=== PATIENT | female | born 1970 | race African-American/Black ===

== ENCOUNTER 2018-12-23 15:16 | Emergency (ER) | payer OTHER ==
[~2018-12-23] VITALS: Ht 154.9 cm; Wt 70.3 kg
[~2018-12-23 15:16] MED LIST: ALBUPOW26; FLUT250M2; OMEP20CA74 PO
[2018-12-23 15:37] LABS: Urine WBC None Seen /hpf (0 - 5)
[2018-12-23 15:47] LABS: Urine Bacteria NONE SEEN /hpf (None Seen); Urine Blood TRACE /uL (Negative); Urine Mucus FEW (None Seen); Urine Specific Gravity 1.027 (1.001-1.035)
[2018-12-23 16:40] LABS: Alanine Aminotransferase 29 U/L (13-56); Albumin 3.7 g/dL (3.4-5.0); Anion Gap 7 (5-15); Aspartate Aminotransferase 13 U/L (15-37); BUN/Creatinine Ratio 14.9; Blood Urea Nitrogen 14 mg/dL (7-18); Calcium 8.4 mg/dL (8.5-10.1); Carbon Dioxide 25 mmol/L (21-32); Chloride 107 mmol/L (98-107); GFR African American 82 mL/min; GFR Non-African American 68 mL/min; Glucose 81 mg/dL (74-106); Potassium 4.1 mmol/L (3.5-5.1); Sodium 139 mmol/L (136-145)
[2018-12-23 16:41] LABS: Eosinophils # (auto) 0.1 uL; Hemoglobin 11.8 g/dL (12.2-16.2); Monocytes # (auto) 0.4 uL
[2018-12-23 16:42] LABS: Basophils # (auto) 0.1 uL; Eosinophils % (auto) 1.3 % (0.0-7.0); Hematocrit 38.2 % (36.0-46.0); Lymphocytes # (auto) 1.8 uL; Lymphocytes % (auto) 32.1 % (10.0-50.0); Mean Corpuscular Volume 67.8 fL (80.0-100.0); Monocytes % (auto) 7.4 % (0.0-12.0); Neutrophils # (auto) 3.2 uL; Neutrophils % (auto) 58.2 % (37.0-80.0); Nucleated Red Blood Cells % 0.2 %; Platelet Count (auto) 277 10^3/uL (140-450); Red Blood Cells 5.63 10^6/uL (4.0-5.20); Red Cell Distribution Width 16.5 % (11.8-14.3); White Blood Cell 5.5 10^3/uL (4.4-10.8)
[2018-12-23 16:45] LABS: Alkaline Phosphatase 57 U/L (45-117); Bilirubin, Total 0.3 mg/dL (0.2-1.0); Total Protein 7.5 g/dL (6.4-8.2)
[2018-12-23] MEDS ORDERED: ASPirin 81 mg TAB PO ONE (17:15)
[2018-12-23 18:10] VITALS: BP 134/62
== END 2018-12-23 18:23 | disposition home or self-care (01) ==
LOC: ER 15:16
DX: R07.89 Other chest pain (principal); R10.13 Epigastric pain; R20.2 Paresthesia of skin; J45.909 Unspecified asthma, uncomplicated; Z79.899 Other long term (current) drug therapy; Z87.891 Personal history of nicotine dependence
CPT/HCPCS: 36415; 71046; 80053; 81001; 84484; 85025; 93005

== ENCOUNTER → 2019-12-22 | Emergency (ER) | payer OTHER ==
[~2019-12-22] VITALS: Ht 154.9 cm; Wt 63.5 kg
[~2019-12-22] MED LIST changes: +ASPirin 81 mg TAB PO ONE
[2019-12-22 12:22] LABS: Urine Bacteria FEW /hpf (None Seen); Urine Blood Negative /uL (Negative); Urine Mucus FEW (None Seen); Urine Specific Gravity 1.011 (1.001-1.035); Urine WBC 1 /hpf (0 - 5)
[2019-12-22 12:23] LABS: Urine Pregnacy Test Negative (Negative)
[2019-12-22 12:42] LABS: Amphetamine Screen, Urine NEGATIVE (NEGATIVE); Barbiturate Scree,Urine NEGATIVE (NEGATIVE); Benzodiazephine Screen, Urine NEGATIVE (NEGATIVE); Cannabinoid Screen, Urine POSITIVE (NEGATIVE); Cocaine Screen, Urine NEGATIVE (NEGATIVE); Opiate Scree,Urine NEGATIVE (NEGATIVE); Phencyclidine Screen, Urine NEGATIVE (NEGATIVE)
[2019-12-22 13:08] LABS: Alcohol, Urine < 3.0 mg/dL (0-5)
[2019-12-22 13:09] LABS: Basophils # (auto) 0.1 10 ^3/uL (0-0.2); Eosinophils # (auto) 0.1 10 ^3/uL (0-0.8); Hemoglobin 12.2 g/dL (12.2-16.2); Lymphocytes # (auto) 1.8 10 ^3/uL (0.4-5.4); Monocytes # (auto) 0.3 10 ^3/uL (0-1.3)
[2019-12-22 13:10] LABS: Eosinophils % (auto) 1.2 % (0.0-7.0); Hematocrit 38.4 % (36.0-46.0); Lymphocytes % (auto) 30.2 % (10.0-50.0); Mean Corpuscular Hemoglobin 21.3 pg (28.0-32.0); Mean Corpuscular Hgb Conc. 31.7 g/dL (32.0-36.0); Monocytes % (auto) 5.8 % (0.0-12.0); Neutrophils # (auto) 3.6 10 ^3/uL (1.6-8.6); Neutrophils % (auto) 61.8 % (37.0-80.0); Platelet Count (auto) 245 10^3/uL (140-450); Red Blood Cells 5.72 10^6/uL (4.0-5.20); Red Cell Distribution Width 17.3 % (11.8-14.3); White Blood Cell 5.9 10^3/uL (4.4-10.8)
[2019-12-22 13:29] LABS: Albumin 3.9 g/dL (3.4-5.0); Anion Gap 4 (5-15); Blood Urea Nitrogen 7 mg/dL (7-18); Calcium 9.1 mg/dL (8.5-10.1); Carbon Dioxide 28 mmol/L (21-32); Chloride 109 mmol/L (98-107); Glucose 89 mg/dL (74-106); Potassium 4.1 mmol/L (3.5-5.1); Sodium 141 mmol/L (136-145)
[2019-12-22 13:30] LABS: Partial Thromboplastin Time 29.9 sec (23.64-32.05)
[2019-12-22 13:34] LABS: Alanine Aminotransferase 28 U/L (13-56); Alkaline Phosphatase 58 U/L (45-117); Aspartate Aminotransferase 13 U/L (15-37); BUN/Creatinine Ratio 8.5; Bilirubin, Total 0.4 mg/dL (0.2-1.0); GFR African American 96 mL/min; GFR Non-African American 79 mL/min; Total Protein 7.7 g/dL (6.4-8.2)
[2019-12-22 15:11] VITALS: BP 118/61
== END | disposition home or self-care (01) ==
LOC: ER 11:15
DX: R07.89 Other chest pain (principal); F12.90 Cannabis use, unspecified, uncomplicated; J45.909 Unspecified asthma, uncomplicated
CPT/HCPCS: 36415; 80053; 80307; 81001; 81025; 83880; 84484; 85025; 85610; 85730; 93005